=== PATIENT | female | born 1955 | race Two or more races ===

== ENCOUNTER 2021-07-10 14:15 | Outpatient (CLI) | payer OTHER | END 2021-07-10 14:24 | disposition home or self-care (01) | LOC: RAD 14:15 | PROVIDERS: ATTEND Orthopaedic Surgery | DX: M25.571 Pain in right ankle and joints of right foot (principal) ==

== ENCOUNTER 2021-08-06 13:09 | Outpatient (CLI) | payer OTHER | END 2021-08-06 13:16 | disposition home or self-care (01) | LOC: NUCLEAR 13:09 | PROVIDERS: ATTEND Orthopaedic Surgery | DX: M81.0 Age-related osteoporosis without current pathological fracture (principal) ==

== ENCOUNTER 2021-08-06 14:13 | Outpatient (CLI) | payer OTHER | END 2021-08-06 14:24 | disposition home or self-care (01) | LOC: RAD 14:13 | PROVIDERS: ATTEND Orthopaedic Surgery | DX: M25.571 Pain in right ankle and joints of right foot (principal); M79.671 Pain in right foot ==